=== PATIENT | female | born 1995 | race Caucasian/White ===

== ENCOUNTER 2019-04-25 11:46 | Emergency (ER) | payer OTHER ==
[~2019-04-25] VITALS: Ht 160 cm; Wt 7.7 kg
[2019-04-25 11:47] VITALS: BP 131/68
[2019-04-25] MEDS ORDERED: ADACEL/BOOSTRIX VACCINE (DIPHTH/PERTUSS/ACELL/TETANUS)0.5ML SYR (90715) IM ONE (12:15)
== END 2019-04-25 12:34 | disposition home or self-care (01) ==
LOC: M ED 12:25
DX: S90.812A Abrasion, left foot, initial encounter (principal); W45.0XXA Nail entering through skin, initial encounter; Y92.099 Unspecified place in other non-institutional residence as the place of occurrence of the external cause; Y93.9 Activity, unspecified; Y99.9 Unspecified external cause status; Z88.1 Allergy status to other antibiotic agents

== ENCOUNTER → 2019-07-21 | Outpatient (REF) | payer OTHER | LOC: M LAB REF 16:57 | PROVIDERS: ATTEND Physician Assistant | DX: N39.0 Urinary tract infection, site not specified (principal) ==

== ENCOUNTER → 2019-09-23 | Outpatient (CLI) | payer OTHER ==
[2019-09-23 14:00] LABS: BASO % 0.3 % (0.0-1.0); EOS % 0.3 % (0.0-3.0); HEMATOCRIT 41.9 % (36.0-47.0); LYMPH # 1.1 10^3/uL (1.5-5.0); LYMPH % 15.4 % (24.0-44.0); MEAN CORPUSCULAR HEMOGLOBIN 30.4 pg (27.0-33.0); MEAN CORPUSCULAR HGB CONC 33.4 g/dl (32.0-36.5); MEAN CORPUSCULAR VOLUME 90.9 fl (80.0-96.0); MONO # 0.4 10^3/uL (0.0-0.8); MONO % 5.2 % (0.0-5.0); NEUTROPHILS # 5.8 10^3/uL (1.5-8.5); NEUTROPHILS % 78.4 % (36.0-66.0); PLATELET COUNT, AUTOMATED 191 10^3/uL (150-450); RED BLOOD COUNT 4.61 10^6/uL (4.00-5.40); WHITE BLOOD COUNT 7.4 10^3/uL (4.0-10.0)
[2019-09-23 14:26] LABS: HEMOGLOBIN A1c 4.8 %
[2019-09-23 15:32] LABS: CHLAMYDIA DNA AMPLIFICATION NEGATIVE (NEGATIVE); GC DNA AMPLIFICATION NEGATIVE (NEGATIVE)
[2019-09-24 10:38] LABS: HEPATITIS B SURFACE ANTIGEN NEGATIVE (NEGATIVE); HEPATITIS C VIRUS ABY INDEX 0.1 INDEX (<0.8); HIV 1&2 SCREEN CENTAUR NEGATIVE (NEGATIVE); RUBELLA IgG QUALITATIVE IMMUNE (IMMUNE)
== END ==
LOC: M PLALAB 10:56
PROVIDERS: ATTEND Advanced Practice Midwife
DX: O34.219 Maternal care for unspecified type scar from previous cesarean delivery (principal); Z3A.09 9 weeks gestation of pregnancy

== ENCOUNTER 2019-10-14 08:27 | Emergency (ER) | payer OTHER ==
[~2019-10-14] VITALS: Ht 160 cm; Wt 75.3 kg
[2019-10-14] MEDS ORDERED: PREN29TA4 PO (08:37)
[2019-10-14 09:03] LABS: BASO % 0.3 % (0.0-1.0); EOS % 0.6 % (0.0-3.0); HEMATOCRIT 38.2 % (36.0-47.0); HEMOGLOBIN 13.4 g/dl (12.0-15.5); LYMPH # 1.4 10^3/uL (1.5-5.0); LYMPH % 21.3 % (24.0-44.0); MEAN CORPUSCULAR HEMOGLOBIN 30.9 pg (27.0-33.0); MEAN CORPUSCULAR HGB CONC 35.1 g/dl (32.0-36.5); MEAN CORPUSCULAR VOLUME 88.2 fl (80.0-96.0); MONO # 0.5 10^3/uL (0.0-0.8); MONO % 6.7 % (0.0-5.0); NEUTROPHILS # 4.7 10^3/uL (1.5-8.5); NEUTROPHILS % 70.7 % (36.0-66.0); PLATELET COUNT, AUTOMATED 170 10^3/uL (150-450); RED BLOOD COUNT 4.33 10^6/uL (4.00-5.40); WHITE BLOOD COUNT 6.7 10^3/uL (4.0-10.0)
[2019-10-14 10:08] LABS: APPEARANCE, URINE CLEAR (CLEAR); BACTERIA, URINE AUTO 1+ (NEGATIVE); BILIRUBIN, URINE AUTO NEGATIVE (NEGATIVE); BLOOD, URINE BLOOD 2+ (NEGATIVE); COLOR, URINE YELLOW (YELLOW); GLUCOSE, URINE (UA) AUTO NEGATIVE (NEGATIVE); KETONE, URINE AUTO NEGATIVE (NEGATIVE); LEUKOCYTE ESTERASE, URINE AUTO NEGATIVE (NEGATIVE); MUCUS, URINE LARGE (NEGATIVE); NITRITE, URINE AUTO NEGATIVE (NEGATIVE); PROTEIN, URINE AUTO 1+ mg/dL (NEGATIVE); RBC, URINE AUTO 2 /HPF (0-3); SPECIFIC GRAVITY URINE AUTO 1.024 (1.002-1.035); SQUAMOUS EPITHELIAL CELL UR AU 3 /HPF (0-6); UROBILINOGEN, URINE AUTO 0.2 mg/dL (0.0-2.0); WBC, URINE AUTO 3 /HPF (0-3)
--- NOTE | 2019-10-14 10:11 | REP ---
Clinical: Dating and viability. Technique: Transabdominal first trimester obstetrical ultrasound with color Doppler evaluation. Findings: Ultrasound examination demonstrates single live early intrauterine . CRL of 5.9 cm corresponds to 12 weeks 3 days gestational age with estimated date of delivery 04/24/2020. heart rate equals 157 bpm. A small subchorionic hemorrhage is identified inferior to the gestational sac measuring 33 x 8 x 28 mm. Impression: 1. Single live early intrauterine at 12 weeks 3 days gestational age. Complete anatomical assessment should be performed at 19-20 weeks. 2. Small subchorionic hemorrhage. Electronically Signed by Archie Larson MD 10/14/2019 10:02 A
[2019-10-14] MEDS ORDERED: RHOGAM 300 MCG (1500 IU) INJ (J2790) IM ONE (11:30)
[2019-10-14 12:34] VITALS: BP 126/68
== END 2019-10-14 12:41 | disposition home or self-care (01) ==
LOC: M ED 08:27
DX: O20.8 Other hemorrhage in early pregnancy (principal); Z3A.12 12 weeks gestation of pregnancy; Z98.890 Other specified postprocedural states; Z88.1 Allergy status to other antibiotic agents
CPT/HCPCS: 36415; 76801; 81001; 84702; 85025; 86901; 87086; 96372; 99283; J2790

== ENCOUNTER → 2019-12-01 | Outpatient (CLI) | payer OTHER ==
[~2019-12-01] MED LIST: PREN29TA4 PO
--- NOTE | 2019-12-01 12:16 | REP ---
Clinical: Anatomical evaluation. Comparison: None . Findings: Examination demonstrates a single live intrauterine in cephalic presentation. motion is identified by technologist. Placenta is noted posterior and grade I without evidence for placenta previa or abruption. Amniotic fluid volume is normal. Cervix measures 3.2 cm in length and appears closed. No evidence for nuchal cord. Gestational age by LMP 19 weeks 0 days with MATT 04/26/2020 . Gestational age by current measurements 19 weeks 0 days with MATT 04/26/2020 . FHR equals 142 beats per minute. BPD 4.4 cm 19 weeks 2 days HC 15.7 cm 18 weeks 4 days AC 14.2 cm 19 weeks 4 days FL 3.0 cm 19 weeks 2 days HL 2.7 cm 18 weeks 4 days HC/AC ratio 1.11 Estimated weight 287 grams ( 61st percentile). Anatomical assessment demonstrates normal structures including cranium, choroid plexus, cavum, cerebellum/posterior fossa, facial features, lungs, four-chamber heart/ventricular outflow tracts, diaphragm, stomach, cord insertion/three-vessel cord, kidneys/bladder, spine, and extremities. Impression: Single live intrauterine in cephalic presentation demonstrating appropriate interval growth. Anatomical assessment is complete and normal.
== END ==
LOC: M WHC 08:51
PROVIDERS: ATTEND Advanced Practice Midwife
DX: O09.212 Supervision of pregnancy with history of pre-term labor, second trimester (principal); Z3A.19 19 weeks gestation of pregnancy

== ENCOUNTER → 2020-02-09 | Outpatient (REF) | payer OTHER ==
[2020-02-09 11:40] LABS: HEMATOCRIT 38.9 % (36.0-47.0); HEMOGLOBIN 13.5 g/dl (12.0-15.5); MEAN CORPUSCULAR HEMOGLOBIN 32.4 pg (27.0-33.0); MEAN CORPUSCULAR HGB CONC 34.7 g/dl (32.0-36.5); MEAN CORPUSCULAR VOLUME 93.3 fl (80.0-96.0); PLATELET COUNT, AUTOMATED 162 10^3/uL (150-450); RED BLOOD COUNT 4.17 10^6/uL (4.00-5.40)
== END ==
LOC: M PLALAB 09:00
PROVIDERS: ATTEND Advanced Practice Midwife
DX: O34.211 Maternal care for low transverse scar from previous cesarean delivery (principal)

== ENCOUNTER → 2020-03-28 | Outpatient (REF) | payer OTHER | LOC: M SFHCWAGY 10:21 | PROVIDERS: ATTEND Obstetrics & Gynecology | DX: Z3A.36 36 weeks gestation of pregnancy (principal) ==

== ENCOUNTER → 2020-04-20 | Outpatient (CLI) | payer OTHER ==
[~2020-04-20] MED LIST changes: +ACET-683 PO; +DOCU100C16 PO; +IBUP80TA PO; +PERCOCET PO; +TUMS500C PO
== END ==
LOC: M LABSMTC 12:07
PROVIDERS: ATTEND Anesthesiology
DX: Z01.818 Encounter for other preprocedural examination (principal); Z11.59 Encounter for screening for other viral diseases

== ENCOUNTER 2020-04-25 05:00 | Inpatient (IN) | payer OTHER ==
[~2020-04-25] VITALS: Ht 160 cm; Wt 83.2 kg
[2020-04-25] VITALS (10 sets, daily range): BP systolic 89–117; BP diastolic 50–71
[~2020-04-25 05:00] MED LIST changes: -ACET-683 PO; -DOCU100C16 PO; -IBUP80TA PO; -PERCOCET PO; -TUMS500C PO
[2020-04-25] MEDS ORDERED: TUMS500C PO (05:12)
[2020-04-25] MEDS ORDERED: ACET-683 PO (05:12)
[2020-04-25] MEDS ORDERED: BICITRA 30ML SOLN UDC PO ONE (05:30)
[2020-04-25] MEDS ORDERED: ceFAZolin SOD 2 GM in IV 1 EA IV ONE (05:30)
[2020-04-25] MEDS ORDERED: LR 1,000 ML IV ONE (05:30)
[2020-04-25 06:21] LABS: HEMATOCRIT 38.6 % (36.0-47.0); HEMOGLOBIN 12.9 g/dl (12.0-15.5); MEAN CORPUSCULAR HEMOGLOBIN 30.5 pg (27.0-33.0); MEAN CORPUSCULAR HGB CONC 33.4 g/dl (32.0-36.5); MEAN CORPUSCULAR VOLUME 91.3 fl (80.0-96.0); PLATELET COUNT, AUTOMATED 146 10^3/uL (150-450); RED BLOOD COUNT 4.23 10^6/uL (4.00-5.40); WHITE BLOOD COUNT 10.1 10^3/uL (4.0-10.0)
[2020-04-25] MEDS ORDERED: LR 1,000 ML IV SCH (06:30)
[2020-04-25] MEDS ORDERED: OXYTOCIN INJ 10 UNITS/ML VIAL (J2590) As Ordered ONE ×2 (07:13→08:21)
[2020-04-25] MEDS ORDERED: MORPHINE PRES-FREE INJ 10 MG/10 ML VIAL (J2274) As Ordered ONE (07:16)
[2020-04-25] MEDS ORDERED: NALOXONE INJ 0.4MG/1ML VIAL (J2310 PER 1MG) IV PRN ×2 (07:53)
[2020-04-25] MEDS ORDERED: NALBUPHINE HCL 10 MG/ML AMP (J2300) IV PRN (07:53)
[2020-04-25] MEDS ORDERED: METOCLOPRAMIDE INJ 10MG/2ML VIAL (J2765 PER 1) IV PRN ×2 (07:53→10:15)
[2020-04-25] MEDS ORDERED: diphenhydrAMINE 50MG/ML VIAL (J1200) IV PRN (07:53)
[2020-04-25] MEDS ORDERED: ONDANSETRON 4MG/2ML VIAL IV PRN ×3 (07:53→10:15)
[2020-04-25] MEDS ORDERED: PHENYLephrine HCL 500 MCG/5 ML (100MCG/ML) SYRINGE (J2370) As Ordered ONE ×3 (08:12→08:49)
[2020-04-25] MEDS ORDERED: dexameTHASONE 4 MG/ML 1ML VIAL (J1100 PER 1MG) As Ordered ONE (08:34)
[2020-04-25] MEDS ORDERED: ONDANSETRON 4MG/2ML VIAL As Ordered ONE ×2 (08:34→09:13)
[2020-04-25] MEDS ORDERED: MEASLES,MUMPS,RUBELLA VACCINE INJ (MMR-II) (90707) SC SCH (10:15)
[2020-04-25] MEDS ORDERED: DOCUSATE SODIUM 100 MG CAP PO PRN (10:15)
[2020-04-25] MEDS ORDERED: RHOGAM 300 MCG (1500 IU) INJ (J2790) IM SCH (10:15)
[2020-04-25] MEDS ORDERED: ONDANSETRON 4 MG TAB PO PRN (10:15)
[2020-04-25] MEDS ORDERED: KETOROLAC 30 MG/ML 1ML VIAL IV PRN (10:15)
[2020-04-25] MEDS ORDERED: PERCOCET 5MG/325MG TAB PO PRN ×3 (10:15)
[2020-04-25] MEDS ORDERED: fentaNYL 100 MCG/2 ML INJECTION (J3010) IV PRN (10:15)
[2020-04-25] MEDS: LR 1,000 ML IV SCH ×2 (11:18→18:01)
[2020-04-25] MEDS ORDERED: IBUP80TA PO (12:46)
[2020-04-25] MEDS ORDERED: PERCOCET PO (12:46)
[2020-04-25] MEDS ORDERED: DOCU100C16 PO (12:46)
[2020-04-25] MEDS: KETOROLAC 30 MG/ML 1ML VIAL IV SCH ×2 (12:52→18:34)
[2020-04-26] MEDS: KETOROLAC 30 MG/ML 1ML VIAL IV SCH ×2 (01:23→06:11)
[2020-04-26 02:34] VITALS: BP 93/50
[2020-04-26] MEDS: LR 1,000 ML IV SCH ×2 (05:00→09:20)
[2020-04-26 06:22] VITALS: BP 111/58
[2020-04-26 07:36] LABS: HEMATOCRIT 28.9 % (36.0-47.0); MEAN CORPUSCULAR HEMOGLOBIN 30.4 pg (27.0-33.0); MEAN CORPUSCULAR HGB CONC 32.9 g/dl (32.0-36.5); MEAN CORPUSCULAR VOLUME 92.6 fl (80.0-96.0); PLATELET COUNT, AUTOMATED 108 10^3/uL (150-450); RED BLOOD COUNT 3.12 10^6/uL (4.00-5.40); WHITE BLOOD COUNT 8.6 10^3/uL (4.0-10.0)
[2020-04-26] MEDS: PRENATAL VITAMINS CHEWABLE TABLET PO SCH (07:44)
[2020-04-26 08:01] LABS: HEMOGLOBIN 9.5 g/dl (12.0-15.5)
[2020-04-26 10:00] VITALS: BP 97/56
[2020-04-26 14:00] VITALS: BP 114/55
[2020-04-26] MEDS: IBUPROFEN 800 MG TAB PO SCH ×2 (15:11→23:18)
[2020-04-26 18:00] VITALS: BP 106/59
[2020-04-26 22:02] VITALS: BP 99/55
[2020-04-27 02:00] VITALS: BP 96/55
[2020-04-27 05:43] VITALS: BP 98/54
[2020-04-27] MEDS: IBUPROFEN 800 MG TAB PO SCH (06:06)
[2020-04-27] MEDS: PRENATAL VITAMINS CHEWABLE TABLET PO SCH (07:58)
[2020-04-27 10:45] VITALS: BP 107/58
--- NOTE | 2020-04-27 13:04 | DSES ---
DATE OF ADMISSION: 04/25/2020 DATE OF DISCHARGE: DISCHARGE DIAGNOSIS: Repeat section at term with hysterectomy due to abnormal placental implantation, uterine atony. SURGEON: Dr. Earl Fields POLICE DETECTIVE: Dr. Warner Velasquez HISTORY: Noa underwent a planned repeat section at term. The surgery was complicated by abnormal placental implantation, placenta accreta and uterine atony. A hysterectomy was performed due to those complications. She had an estimated blood loss of 700 mL. She did deliver a live fetus weighing 3630 grams, 8 pounds, Apgars 9 and 9. Her postoperative course has been uncomplicated. She has been out of bed for self care, nat care and infant care. She has been tolerating by mouth fluids and a regular diet. She is voiding without difficulty and passing flatus. Her pain has been well managed with by mouth pain medications and she is requesting discharge home today. She does deny dizziness, heart palpitations and fatigue. OBJECTIVE: Temperature 97.4, pulse 73, respirations 20, blood pressure (BP) 98/54. Preoperative CBC, 04/25/2020 - hemoglobin 12.9, hematocrit 38.6, platelets 146. Postoperative CBC, 04/26/2020 - hemoglobin of 9.5, hematocrit 28.9, platelets 108. Breasts are soft and nontender. She is alert and oriented x3. Her abdomen with fundus firm at umbilicus. Incision dressing is dry and intact. There is no new drainage. Perineum is intact. Lochia rubra scant. PLAN: Discharge the patient home today. She is to follow up at [facility] for a 2-week incision check and an 8-week visit. I did review discharge instructions that include breast care, incision care, nat care, pelvic rest, activity and lifting restrictions, danger signs to report and access to her provider. Prescriptions for pain medications have been E-prescribed by Dr. Earl Fields. The patient has had her questions answered and does desire discharge home.
== END 2020-04-27 13:25 | disposition home or self-care (01) | DRG 772 ==
LOC: M LDI 05:00 → M OBS 10:53 → M LDI 16:10 → M OBS 16:17
PROVIDERS: ADMIT Obstetrics & Gynecology; ATTEND Obstetrics & Gynecology
PROC: 0UT90ZZ Resection of Uterus, Open Approach (ICD-10-PCS; 2020-04-25)
PROC: 10D00Z1 Extraction of Products of Conception, Low, Open Approach (ICD-10-PCS; principal; 2020-04-25 07:30)
DX: O34.211 Maternal care for low transverse scar from previous cesarean delivery (principal); O72.1 Other immediate postpartum hemorrhage; Z37.0 Single live birth; Z3A.39 39 weeks gestation of pregnancy; O43.213 Placenta accreta, third trimester; O43.893 Other placental disorders, third trimester; Z30.2 Encounter for sterilization

== ENCOUNTER → 2020-06-05 | Outpatient (REF) | payer OTHER ==
[~2020-06-05] MED LIST changes: +ACET-683 PO; +DOCU100C16 PO; +IBUP80TA PO; +PERCOCET PO; +TUMS500C PO
[2020-07-17 13:00] LABS: HSV TYPE I IgG SPECIFIC SEE SEPARATE REPORT; HSV TYPE II IgG SPECIFIC SEE SEPARATE REPORT
[2020-07-17 13:01] LABS: HSV TYPE I IgM AB SEE SEPARATE REPORT; HSV TYPE II IgM ABY SEE SEPARATE REPORT
== END ==
LOC: M SFHCWAGY 15:39
PROVIDERS: ATTEND Advanced Practice Midwife
DX: Z11.3 Encounter for screening for infections with a predominantly sexual mode of transmission (principal)

== ENCOUNTER → 2020-09-07 | Outpatient (REF) | payer OTHER | LOC: M SFHCWAGY 13:03 | PROVIDERS: ATTEND Obstetrics & Gynecology | DX: Z12.4 Encounter for screening for malignant neoplasm of cervix (principal); R87.610 Atypical squamous cells of undetermined significance on cytologic smear of cervix (ASC-US) | CPT/HCPCS: 87624; G0123; G0463 ==

== ENCOUNTER → 2021-04-03 | Outpatient (CLI) | payer OTHER ==
[2021-04-03 12:33] LABS: BASO % 0.7 % (0.0-1.0); EOS # 0.1 10^3/uL (0.0-0.5); EOS % 2.3 % (0.0-3.0); HEMATOCRIT 43.3 % (36.0-47.0); HEMOGLOBIN 14.1 g/dl (12.0-15.5); LYMPH # 1.5 10^3/uL (1.5-5.0); LYMPH % 27.1 % (24.0-44.0); MEAN CORPUSCULAR HEMOGLOBIN 29.7 pg (27.0-33.0); MEAN CORPUSCULAR HGB CONC 32.6 g/dl (32.0-36.5); MEAN CORPUSCULAR VOLUME 91.2 fl (80.0-96.0); MONO # 0.4 10^3/uL (0.0-0.8); MONO % 7.6 % (2.0-8.0); NEUTROPHILS # 3.4 10^3/uL (1.5-8.5); NEUTROPHILS % 61.8 % (36.0-66.0); PLATELET COUNT, AUTOMATED 210 10^3/uL (150-450); RED BLOOD COUNT 4.75 10^6/uL (4.00-5.40); WHITE BLOOD COUNT 5.5 10^3/uL (4.0-10.0)
[2021-04-03 13:24] LABS: ALBUMIN 4.3 GM/DL (3.2-5.2); ALT/SGPT 15 U/L (12-78); BILIRUBIN,TOTAL 0.7 MG/DL (0.2-1.0); BLOOD UREA NITROGEN 7 MG/DL (7-18); CARBON DIOXIDE LEVEL 26 MEQ/L (21-32); CHLORIDE LEVEL 109 MEQ/L (98-107); CREATININE FOR GFR 0.61 MG/DL (0.55-1.30); FREE T4 0.96 NG/DL (0.76-1.46); GLOMERULAR FILTRATION RATE > 60.0 (>60); GLUCOSE, FASTING 82 MG/DL (70-100); POTASSIUM SERUM 3.9 MEQ/L (3.5-5.1); SODIUM LEVEL 142 MEQ/L (136-145); TOTAL PROTEIN 7.2 GM/DL (6.4-8.2); VITAMIN B12 LEVEL 475 PG/ML
[2021-04-03 15:52] LABS: HEMOGLOBIN A1c 4.7 %
== END ==
LOC: M WUC 08:28
PROVIDERS: ATTEND Physician Assistant
DX: G25.81 Restless legs syndrome (principal)

== ENCOUNTER → 2021-06-12 | Outpatient (REF) | payer OTHER | LOC: M LAB REF 17:20 | PROVIDERS: ATTEND Family Medicine | DX: N76.0 Acute vaginitis (principal) ==

== ENCOUNTER 2021-06-24 03:21 | Emergency (ER) | payer OTHER ==
[~2021-06-24] VITALS: Ht 160 cm; Wt 75.0 kg
[2021-06-24] MEDS ORDERED: BUSP10TA PO (03:39)
[2021-06-24] MEDS ORDERED: FLUC100T PO (03:39)
--- NOTE | 2021-06-24 05:18 | REPVR ---
PROCEDURE INFORMATION: Exam: XR Left Ankle Exam date and time: 06/24/2021 4:35 AM Age: 26 years old Clinical indication: Other: Fall with pain TECHNIQUE: Imaging protocol: XR Left ankle. Views: 3 or more views. COMPARISON: No relevant prior studies available. FINDINGS: Bones/joints: Bones are intact. Ankle mortise preserved. No fracture or dislocation. Soft tissues: Unremarkable. IMPRESSION: No acute bony abnormality. Electronically signed by: Archie Echols On 06/24/2021 05:17:53 AM
--- NOTE | 2021-06-24 05:22 | REPVR ---
PROCEDURE INFORMATION: Exam: XR Left Tibia and Fibula Exam date and time: 06/24/2021 4:35 AM Age: 26 years old Clinical indication: Other: Fall with pain TECHNIQUE: Imaging protocol: XR Left tibia and fibula. Views: 2 views. COMPARISON: No relevant prior studies available. FINDINGS: Bones/joints: Bones are intact with preservation of the tibiofemoral joint space and ankle mortise. No fracture or dislocation. Soft tissues: Unremarkable. IMPRESSION: No acute bony abnormality. Electronically signed by: Archie Echols On 06/24/2021 05:22:09 AM
[2021-06-24 06:40] VITALS: BP 118/83
== END 2021-06-24 06:56 | disposition home or self-care (01) ==
LOC: M ED 03:21
DX: S93.402A Sprain of unspecified ligament of left ankle, initial encounter (principal); W19.XXXA Unspecified fall, initial encounter; Y92.099 Unspecified place in other non-institutional residence as the place of occurrence of the external cause; Y93.89 Activity, other specified; Y99.9 Unspecified external cause status; K58.9 Irritable bowel syndrome, unspecified; M54.9 Dorsalgia, unspecified; Z87.440 Personal history of urinary (tract) infections; Z88.1 Allergy status to other antibiotic agents

== ENCOUNTER → 2021-07-09 | Outpatient (CLI) | payer OTHER ==
[~2021-07-09] MED LIST changes: +BUSP10TA PO; +FLUC100T PO
--- NOTE | 2021-07-09 11:49 | REP ---
INDICATION: PAIN IN LEFT ANKLE AND JOINTS OF LEFT FOOT. COMPARISON: None. TECHNIQUE: Four views FINDINGS: No acute fracture or destructive osseous lesion. The mortise is intact. IMPRESSION: Within normal limits <Electronically signed by Ravin Corral > 07/09/21 [id number]
--- NOTE | 2021-07-09 11:49 | REP ---
INDICATION: PAIN IN LEFT ANKLE AND JOINTS OF LEFT FOOT. S COMPARISON: None. TECHNIQUE: Four views FINDINGS: The joint spaces are symmetric and relatively well maintained. There is no evidence of acute fracture or destructive osseous lesion. IMPRESSION: Negative. <Electronically signed by Ravin Corral > 07/09/21 [id number]
== END ==
LOC: M RAD 10:14
PROVIDERS: ATTEND Physician Assistant
DX: M25.572 Pain in left ankle and joints of left foot (principal)

== ENCOUNTER → 2021-08-14 | Outpatient (REF) | payer OTHER | LOC: M LAB REF 17:18 | PROVIDERS: ATTEND Physician Assistant | DX: N39.0 Urinary tract infection, site not specified (principal) ==

== ENCOUNTER → 2021-12-24 | Outpatient (REF) | payer OTHER ==
[~2021-12-24] MED LIST changes: -FLUC100T PO; +FLUC100T3 PO
== END ==
LOC: M PLALAB 08:43
PROVIDERS: ATTEND Specialist
DX: Z01.419 Encounter for gynecological examination (general) (routine) without abnormal findings (principal)

== ENCOUNTER → 2022-06-11 | Outpatient (REF) | payer OTHER ==
[2022-06-11 20:47] LABS: GC DNA AMPLIFICATION NEGATIVE (NEGATIVE)
== END ==
LOC: M LAB REF 18:09
PROVIDERS: ATTEND Family Medicine
DX: N76.0 Acute vaginitis (principal)